=== PATIENT | female | born 1970 | race Caucasian/White ===

== ENCOUNTER 2018-09-29 10:34 | Inpatient (IN) | payer OTHER ==
[2018-09-29 11:32] VITALS: BMI 29.8
[2018-09-29] MEDS ORDERED: LOPERAMIDE HCL 2 MG CAPSULE PO PRN (12:36)
[2018-09-29] MEDS ORDERED: MAGNESIUM HYDROX 2400MG/30ML ORAL SUSPENSION 30 ML CUP PO PRN (12:36)
[2018-09-29] MEDS ORDERED: MENTHOL/PHENOL 1 EACH UD MM PRN (12:36)
[2018-09-29] MEDS ORDERED: ACETAMINOPHEN 325 MG TABLET (FP) PO PRN (12:36)
[2018-09-29] MEDS ORDERED: hydrOXYzine PAMOATE 25 MG CAPSULE (FP) PO PRN (12:36)
[2018-09-29] MEDS ORDERED: P-EPHED 60MG/TRIPROLIDI 2.5MG TABLET PO PRN (12:36)
[2018-09-29] MEDS ORDERED: guaiFENesin 200 MG/10 ML 10 ML UNIT-DOSE CUPS PO PRN (12:36)
[2018-09-29] MEDS ORDERED: IBUPROFEN 400 MG TABLET (FP) PO PRN (12:36)
[2018-09-29] MEDS ORDERED: MAG HYDROX/AL HYDROX/SIMETH 30 ML UNIT-DOSE CUP PO PRN (12:36)
[2018-09-29] MEDS ORDERED: MAGNESIUM CITRATE 300 ML BOTTLE PO PRN (12:36)
--- NOTE | 2018-09-29 13:05 | HP ---
CIWA Score - Admission Criteria OASAS Guidelines: Admission for Medically Managed Detox: Requires at least one of the followin. CIWA greater than 12 2. Seizures within the past 24 hours 3. Delirium tremens within the past 24 hours 4. Hallucinations within the past 24 hours 5. Acute intervention needed for co occurring medical disorder 6. Acute intervention needed for co occurring psychiatric disorder 7. Severe withdrawal that cannot be handled at a lower level of care (continued vomiting, continued diarrhea, abnormal vital signs) requiring intravenous medication and/or fluids 8. Admission ROS [facility] - [facility] Chief Complaint: rehab for heroin, crack cocaine, and marijuana Allergies/Adverse Reactions: Allergies Allergy/AdvReac Type Severity Reaction Status Date / Time No Known Allergies Allergy Verified 09/18/18 14:21 History of Present Illness: Ms. Yen is a 48yo female with heroin use disorder on methadone tx, cocaine use disorder, marijuana use disorder, anxiety, HTN, and fibromyalgia who presents for rehab. She tried to check in on 09/18/18 but left before being admitted. She is currently in methadone tx program on 140mg last given today, but she used 1 bag of heroin yesterday afternoon by inhalation. First use at 26. She has been in methadone tx since November 2017. Pt also reports smoking $200 worth of crack cocaine daily and used $500 worth yesterday. First use at 17. Pt also reports smoking 1-2 bags/daily of marijuana. First use at 13. Pt smokes 1/2 ppd since 12. She rarely drinks ETOH. Pt reports back pain. Pt denies JAMES, dizziness, chills, sweating, CP, SOB. PMH: heroin use disorder on methadone tx, cocaine use disorder, marijuana use disorder, anxiety, HTN, and fibromyalgia surgical hx: fx pelvis, ankle, skull, appy, lung meds: Abilify, Remeron, Klonopin, omeprazole family hx: parents-HTN - Ebola screening Have you traveled outside of the country in the last 21 days: No (NN) Have you had contact with anyone from an Ebola affected area: No Do you have a fever: No - Review of Systems Constitutional: No Symptoms Reported EENT: reports: No Symptoms Reported Respiratory: denies: Shortness of Breath Cardiac: denies: Chest Pain GI: denies: Diarrhea, Nausea, Vomiting : reports: No Symptoms Reported Musculoskeletal: reports: Back Pain Integumentary: reports: No Symptoms Reported Neuro: denies: Headache, Dizziness Endocrine: reports: No Symptoms Reported Hematology: reports: No Symptoms Reported Psychiatric: reports: Judgement Intact, Mood/Affect Appropiate, Orientated x3 Patient History - Patient Medical History Hx Anemia: No Hx Asthma: No Hx Chronic Obstructive Pulmonary Disease (COPD): No Hx Cancer: No Hx Cardiac Disorders: No Hx Congestive Heart Failure: No Hx Hypertension: No Hx Hypercholesterolemia: No Hx Pacemaker: No HX Cerebrovascular Accident: No Hx Seizures: No Hx Dementia: No Hx Diabetes: No Hx Gastrointestinal Disorders: No Hx Liver Disease: No Hx Genitourinary Disorders: No Hx Sexually Transmitted Disorders: No Hx Renal Disease (ESRD): No Hx Thyroid Disease: No Hx Human Immunodeficiency Virus (HIV): No (2018 last negative) Hx Hepatitis C: Yes (treated) Hx Depression: No Hx Suicide Attempt: No Hx Bipolar Disorder: Yes (on med) Hx Schizophrenia: No - Patient Surgical History Past Surgical History: Yes Hx Appendectomy: Yes (at age of 5 years) Hx Orthopedic Surgery: Yes (right ankle at age 38 years) - Reproductive History Last Menstrual Period: 04/22/16 - Smoking Cessation Smoking history: Current every day smoker Have you smoked in the past 12 months: Yes Aproximately how many cigarettes per day: 10 Cigars Per Day: 0 Hx Chewing Tobacco Use: No Initiated information on smoking cessation: Yes 'Breaking Loose' booklet given: 09/29/18 - Substances abused Crack Substance route: Smoking Frequency: Daily Amount used: $600/week Age of first use: 19 Date of last use: 09/29/18 Alcohol Substance route: Oral Frequency: 3-6 times per week Amount used: 3 nips & 3 strawbaritia beer Age of first use: 13 Date of last use: 09/27/18 Marijuana/Hashish Substance route: Smoking Frequency: Daily Amount used: 2 bags Age of first use: 48 Date of last use: 09/28/18 Heroin Substance route: Inhalation Frequency: 1-2 times per week Amount used: 1 bag/day Age of first use: 26 Date of last use: 09/28/18 Family Disease History - Family Disease History Family Disease History: Other: Father (HTN), Mother (HTN) Admission Physical Exam BHS - Vital Signs Vital Signs: Vital Signs - 24 hr 09/29/18 11:23 Temperature 97.6 F Pulse Rate 49 L Respiratory 18 Rate Blood Pressure 126/77 - Physical General Appearance: Yes: No Apparent Distress HEENTM: Yes: Within Normal Limits Respiratory: Yes: Lungs Clear, No Respiratory Distress Neck: Yes: Within Normal Limits Cardiology: Yes: Regular Rhythm, Bradycardia Abdominal: Yes: Normal Bowel Sounds, Non Tender Back: Yes: Within Normal Limits Musculoskeletal: Yes: full range of Motion 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: 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 intact, Fully Oriented, Alert, Motor Strength 5/5, Normal Mood/Affect Integumentary: Yes: Within Normal Limits - Diagnostic (1) Opioid use disorder Current Visit: Yes Status: Chronic (2) Hypertension Current Visit: Yes Status: Chronic Qualifiers: Hypertension type: unspecified Qualified Code(s): I10 - Essential (primary ) hypertension (3) Cannabis dependence Current Visit: No Status: Chronic (4) Cocaine dependence Current Visit: No Status: Chronic (5) Methadone maintenance therapy patient Current Visit: Yes Status: Chronic (6) Nicotine dependence Current Visit: Yes Status: Chronic Cleared for Admission [facility] - Detox or Rehab [facility] Level of Care: Medically Managed Breathalyzer - Breathalyzer Breathalyzer: 0 Urine Drug Screen - Test Device Lot number: [id number] Expiration date: 07/10/20 - Control Is test valid?: Yes - Results Drug screen NEGATIVE: No Urine drug screen results: THC-Marijuana, INDIA-Cocaine, MOP-Opiates, MTD- Methadone Inpatient Rehab Admission - Rehab Decision to Admit Inpatient rehab admission?: Yes - Initial Determination Are CD services needed?: Yes Free of communicable disease: Yes Not in need of hospitalization: Yes - Rehab Admission Criteria Previous failed treatment: Yes Poor recovery environment: Yes Comorbidities: Yes Lacks judgement: No Patient is meeting Inpatient Rehab admission criteria:: Yes
[2018-09-29 14:41] LABS: HEMATOCRIT 37.3 % (32.4-45.2); HEMOGLOBIN 12.8 GM/dL (10.7-15.3); MCH 30.5 pg (25.7-33.7); MCHC 34.4 g/dl (32.0-36.0); MEAN CELL VOLUME 88.7 fl (80-96); MEAN PLT VOLUME 8.4 fl (7.5-11.1); PLATELET COUNT 291 K/MM3 (134-434); RDW 12.1 % (11.6-15.6)
[2018-09-29 14:51] LABS: ALBUMIN 3.4 g/dl (3.4-5.0); BILIRUBIN,TOTAL 0.4 mg/dL (0.2-1); BLOOD UREA NITROGEN 6.5 mg/dL (7-18); CREATININE 0.6 mg/dL (0.55-1.3)
[2018-09-29] MEDS: NICOTINE 14 MG/24 HOURS TOPICAL PATCH TD SCH (16:02)
[2018-09-29] MEDS ORDERED: MELATONIN 5 MG TABLETS PO PRN (22:00)
[2018-09-30] MEDS ORDERED: METHADONE HCL 10 MG TABLET PO SCH ×2 (06:00)
[2018-09-30] MEDS ORDERED: METHADONE HCL 40 MG DISPERSABLE TABLET ONE (06:14)
[2018-09-30] MEDS ORDERED: METHADONE HCL 10 MG TABLET ONE (06:14)
[2018-09-30] MEDS: METHADONE 120 MG, METHADONE 10 MG PO SCH (06:25)
--- NOTE | 2018-09-30 07:50 | PN ---
Teaching Attending Note Name of Resident: Eva Tierney ATTENDING PHYSICIAN STATEMENT I saw and evaluated the patient. I reviewed the resident's note and discussed the case with the resident. I agree with the resident's findings and plan as documented. SUBJECTIVE: Agree with subjective findings by resident OBJECTIVE: Agree with objective findings by resident ASSESSMENT AND PLAN: Agree with admission plans and orders by resident. Dr. Carpenter
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
[2018-09-30] MEDS: NICOTINE 14 MG/24 HOURS TOPICAL PATCH TD SCH (10:37)
[2018-09-30] MEDS: PANTOPRAZOLE 20 MG TABLET (FP) PO SCH (10:37)
[2018-09-30] MEDS: NICOTINE POLACRILEX 2 MG GUM BC PRN ×2 (10:41→19:05)
[2018-09-30] MEDS: ARIPiprazole 10 MG TABLET PO SCH (11:57)
--- NOTE | 2018-09-30 13:41 | EKG ---
Test Reason : Blood Pressure : / mmHG Vent. Rate : 044 BPM Atrial Rate : 044 BPM P-R Int : 168 ms QRS Dur : 090 ms QT Int : 514 ms P-R-T Axes : 071 067 063 degrees QTc Int : 439 ms MARKED SINUS BRADYCARDIA ABNORMAL ECG NO PREVIOUS ECGS AVAILABLE Confirmed by ORLANDO URENA, LATESHA ([id number]) on 09/30/2018 1:40:51 PM Referred By: Confirmed By:LATESHA PERRY MD
[2018-09-30] MEDS ORDERED: cloNIDine HCL 0.1 MG TABLET PO PRN (14:26)
--- NOTE | 2018-09-30 14:37 | PN ---
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 REPORTS SH HAS TAKEN NORVASC IN THE PAST. DENIES HX OF HTN ON ADMISSION. UNABLE TO REMEMBER THE DOSE. PT UNABLE TO GIVE CLEAR MEDICAL INFORMATION. PT IS ALERT O X3. NAD. THIS STRUCTURAL ENGINEERING PROJECT MANAGER CALLED [facility] WHICH IS PT'S HOME PHARMACY IN [facility] [place] AND PHARMACIST REPORTS PT NEVER ON NORVASC WITH THEM. STATES ONLY CLONAZEPAM IN THEIR PHARMACY. Vital Signs - 24 hr 09/30/18 09/30/18 09/30/18 00:30 03:30 07:31 Temperature 98.2 F Pulse Rate 56 L Respiratory 18 18 18 Rate Blood Pressure 181/90 H 09/30/18 08:54 Temperature 97.7 F Pulse Rate 54 L Respiratory 20 Rate Blood Pressure 132/85 A/P ??TRANSIENT ELEVATED BP PT HX OF BP MED-NOT VERIFIABLE CLONIDINE 0.1 MG PO BID PRN
[2018-09-30 17:23] LABS: EPI CELLS >36 /HPF (0-5/HPF); HYALINE CASTS 165 /lpf (0-8); PH,URINE 5.5 (5.0-8.0); URINE APPEARANCE TURBID; URINE BACTERIA 960.1 /hpf (NEGATIVE); URINE BILIRUBIN NEGATIVE (NEGATIVE); URINE COLOR YELLOW; URINE GLUCOSE (UA) NEGATIVE (NEGATIVE); URINE KETONE TRACE (NEGATIVE); URINE LEUK ESTERASE 2+ (NEGATIVE); URINE NITRITE NEGATIVE (NEGATIVE); URINE PROTEIN NEGATIVE (NEGATIVE); URINE RBC 3 /hpf (0-4); URINE WBC 76 /hpf (0-5)
[2018-09-30 18:21] LABS: URINE CRYSTALS CALCIUM OXALATE /hpf
[2018-09-30] MEDS ORDERED: SUVOREXANT 10 MG TABLET PO PRN (22:00)
[2018-10-01] MEDS ORDERED: METHADONE HCL 10 MG TABLET ONE (03:47)
[2018-10-01] MEDS ORDERED: METHADONE HCL 40 MG DISPERSABLE TABLET ONE (03:47)
[2018-10-01] MEDS: METHADONE 120 MG, METHADONE 10 MG PO SCH (06:17)
[2018-10-01 07:35] VITALS: TEMP 98.5
[2018-10-01] MEDS ORDERED: PT OWN MED DRAWER 7, Y5N ONE (09:04)
[2018-10-01] MEDS ORDERED: IBUPROFEN 600 MG TABLET (FP) PO PRN (10:37)
[2018-10-01] MEDS: NICOTINE 14 MG/24 HOURS TOPICAL PATCH TD SCH (10:38)
[2018-10-01] MEDS: PANTOPRAZOLE 20 MG TABLET (FP) PO SCH (10:39)
[2018-10-01] MEDS: ARIPiprazole 10 MG TABLET PO SCH (10:39)
[2018-10-01] MEDS: NICOTINE POLACRILEX 2 MG GUM BC PRN (10:41)
[2018-10-01 11:06] VITALS: BP 123/75; PULSE 60
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
== END 2018-10-01 14:15 | disposition left against medical advice (07) | DRG 770 ==
LOC: YASAS 10:34 → Y3E 12:59
PROVIDERS: ADMIT Neuromusculoskeletal Medicine & OMM; ATTEND Neuromusculoskeletal Medicine & OMM
PROC: HZ42ZZZ Group Counseling for Substance Abuse Treatment, Cognitive-Behavioral (ICD-10-PCS; principal; 2018-09-29)
DX: F10.20 Alcohol dependence, uncomplicated (principal); F11.20 Opioid dependence, uncomplicated; F14.20 Cocaine dependence, uncomplicated; F12.20 Cannabis dependence, uncomplicated; F17.210 Nicotine dependence, cigarettes, uncomplicated; F19.24 Other psychoactive substance dependence with psychoactive substance-induced mood disorder; F31.81 Bipolar II disorder; F43.10 Post-traumatic stress disorder, unspecified; I10 Essential (primary) hypertension; M79.7 Fibromyalgia
CPT/HCPCS: 36415; 80053; 81003; 85027; 86480; 86593; 87389; 93005; 93010

== ENCOUNTER 2018-10-17 12:23 | Inpatient (IN) | payer OTHER ==
[2018-10-17 14:18] VITALS: BMI 29.2
--- NOTE | 2018-10-17 17:52 | HP ---
CIWA Score Nausea/Vomitin Muscle Tremors: 2 Anxiety: 2 Agitation: 2 Paroxysmal Sweats: 2 Orientation: 0-Oriented Tacttile Disturbances: 2-Mild Itch/Numbness/Burn Auditory Disturbances: 1-Very Mild Visual Disturbances: 2-Mild Sensitivity Headache: 1-Very Mild CIWA-Ar Total Score: 16 - Admission Criteria OASAS Guidelines: Admission for Medically Managed Detox: Requires at least one of the followin. CIWA greater than 12 2. Seizures within the past 24 hours 3. Delirium tremens within the past 24 hours 4. Hallucinations within the past 24 hours 5. Acute intervention needed for co occurring medical disorder 6. Acute intervention needed for co occurring psychiatric disorder 7. Severe withdrawal that cannot be handled at a lower level of care (continued vomiting, continued diarrhea, abnormal vital signs) requiring intravenous medication and/or fluids 8. Patient presents the following: CIWA greater than 12 Admission Criteria Met: Admission criteria met Admission ROS S - HPI Chief Complaint: I need help to stop drinking and smoking crack Allergies/Adverse Reactions: Allergies Allergy/AdvReac Type Severity Reaction Status Date / Time No Known Allergies Allergy Verified 10/17/18 13:56 History of Present Illness: 48 year old woman presents for detox from alcohol, she reports blackouts in the past, last episode a year ago. She [facility] She was medicated today, reports her Friday dose was left at home. Exam Limitations: No Limitations - Ebola screening Have you traveled outside of the country in the last 21 days: No (N) Have you had contact with anyone from an Ebola affected area: No Have you been sick,other than usual withdrawal symptoms: No Do you have a fever: No - Review of Systems Constitutional: Chills, Loss of Appetite, Changes in sleep EENT: reports: Blurred Vision Respiratory: reports: Cough Cardiac: reports: No Symptoms Reported GI: reports: Diarrhea, Poor Appetite, Poor Fluid Intake, Abdominal cramping : reports: Other (Dont urinate a lot) Musculoskeletal: reports: Back Pain, Joint Pain, Muscle Pain, Muscle Weakness Integumentary: reports: No Symptoms Reported Neuro: reports: Headache, Numbness, Tingling, Tremors Endocrine: reports: No Symptoms Reported Hematology: reports: No Symptoms Reported Psychiatric: reports: Anxious Other Systems: Reviewed and Negative Patient History - Patient Medical History Hx Anemia: No Hx Asthma: No Hx Chronic Obstructive Pulmonary Disease (COPD): No Hx Cancer: No Hx Cardiac Disorders: No Hx Congestive Heart Failure: No Hx Hypertension: Yes Hx Hypercholesterolemia: No Hx Pacemaker: No HX Cerebrovascular Accident: No Hx Seizures: No Hx Dementia: No Hx Diabetes: No Hx Gastrointestinal Disorders: No Hx Liver Disease: No Hx Genitourinary Disorders: No Hx Sexually Transmitted Disorders: No Hx Renal Disease (ESRD): No Hx Thyroid Disease: No Hx Human Immunodeficiency Virus (HIV): No Hx Hepatitis C: Yes (treated) Hx Depression: No Hx Suicide Attempt: No Hx Bipolar Disorder: Yes Hx Schizophrenia: No - Patient Surgical History Past Surgical History: Yes Hx Appendectomy: Yes (at age of 5 years) Hx Orthopedic Surgery: Yes (right ankle at age 38 years) Anesthesia Reaction: No - PPD History Previous Implant?: No Documented Results: Negative w/o proof Implanted On Prior [facility] Admission?: No PPD to be Administered?: No - Reproductive History Patient is a Female of Child Bearing Age (11 -55 yrs old): Yes Last Menstrual Period: 04/22/16 Patient : No - Smoking Cessation Smoking history: Current every day smoker Have you smoked in the past 12 months: Yes Aproximately how many cigarettes per day: 10 Cigars Per Day: 0 Hx Chewing Tobacco Use: No Initiated information on smoking cessation: Yes 'Breaking Loose' booklet given: 10/17/18 - Substances abused Crack Substance route: Smoking Frequency: Daily Amount used: $250/day Age of first use: 19 Date of last use: 10/17/18 Alcohol Substance route: Oral Frequency: Daily Amount used: 2-3 16oz cans beer Age of first use: 12 Date of last use: 10/15/18 Marijuana/Hashish Substance route: Smoking Frequency: Daily Amount used: 1joint Age of first use: 48 Date of last use: 10/17/18 Heroin Substance route: Inhalation Frequency: Daily Amount used: 3 bags/day Age of first use: 26 Date of last use: 10/17/18 Family Disease History - Family Disease History Family Disease History: Other: Father (HTN), Mother (HTN) Admission Physical Exam BHS - Vital Signs Vital Signs: Vital Signs - 24 hr 10/17/18 13:49 Temperature 97.9 F Pulse Rate 59 L Respiratory 16 Rate Blood Pressure 138/84 - Physical General Appearance: Yes: No Apparent Distress HEENTM: Yes: Hearing grossly Normal, Normocephalic, Normal Voice Respiratory: Yes: Chest Non-Tender, Lungs Clear, Normal Breath Sounds Neck: Yes: No masses,lesions,Nodules, Supple Breast: Yes: Breast Exam Deferred Cardiology: Yes: Regular Rhythm, Regular Rate, S1, S2 Abdominal: Yes: Normal Bowel Sounds, Non Tender, Soft Genitourinary: Yes: Within Normal Limits Back: Yes: Normal Inspection Musculoskeletal: Yes: Gait Steady, Pelvis Stable, Back pain, Muscle weakness Extremities: Yes: Tremors 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: 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, Fully Oriented, Alert, Normal Mood/ Affect, Normal Response Integumentary: Yes: Normal Color, Warm Lymphatic: Yes: Within Normal Limits - Diagnostic (1) Alcohol dependence, uncomplicated Current Visit: Yes Status: Acute (2) Hypertension Current Visit: No Status: Chronic Qualifiers: Hypertension type: essential hypertension Qualified Code(s): I10 - Essential (primary) hypertension (3) Methadone maintenance therapy patient Current Visit: Yes Status: Chronic (4) Nicotine dependence Current Visit: Yes Status: Acute Qualifiers: Nicotine product type: cigarettes Substance use status: uncomplicated Qualified Code(s): F17.210 - Nicotine dependence, cigarettes, uncomplicated (5) Opioid dependence on agonist therapy Current Visit: Yes Status: Chronic Cleared for Admission S - Detox or Rehab [facility] Level of Care: Medically Managed Detox Regimen/Protocol: Librium Claeared for Rehab Admission: No Breathalyzer - Breathalyzer Breathalyzer: 0 Urine Drug Screen - Test Device Lot number: [id number] Expiration date: 04/09/20 - Control Is test valid?: Yes - Results Drug screen NEGATIVE: No Urine drug screen results: THC-Marijuana, INDIA-Cocaine, MTD-Methadone Inpatient Rehab Admission - Rehab Decision to Admit Inpatient rehab admission?: No
[2018-10-17] MEDS ORDERED: IBUPROFEN 400 MG TABLET (FP) PO PRN (18:02)
[2018-10-17] MEDS ORDERED: BISMUTH SUBSALICYLATE 524 MG/30 ML UD PO PRN (18:02)
[2018-10-17] MEDS ORDERED: MAGNESIUM HYDROX 2400MG/30ML ORAL SUSPENSION 30 ML CUP PO PRN (18:02)
[2018-10-17] MEDS ORDERED: ACETAMINOPHEN 325 MG TABLET (FP) PO PRN ×2 (18:02)
[2018-10-17] MEDS ORDERED: chlordiazePOXIDE HCL 10 MG CAPSULE PO PRN (18:02)
[2018-10-17] MEDS ORDERED: MELATONIN 5 MG TABLETS PO PRN (18:02)
[2018-10-17] MEDS ORDERED: hydrOXYzine PAMOATE 25 MG CAPSULE (FP) PO PRN (18:02)
[2018-10-17] MEDS ORDERED: MAGNESIUM CITRATE 300 ML BOTTLE PO PRN (18:02)
[2018-10-17] MEDS ORDERED: NICOTINE POLACRILEX 2 MG GUM BUC PRN (18:02)
[2018-10-17] MEDS ORDERED: MENTHOL/PHENOL 1 EACH UD MM PRN (18:02)
[2018-10-17] MEDS ORDERED: predniSONE 20 MG TABLET (UD) PO SCH (19:00)
[2018-10-17] MEDS: NICOTINE 7 MG/24 HOURS TOPICAL PATCH TD SCH (19:21)
[2018-10-17] MEDS: THIAMINE HCL 100 MG TABLET (FP) PO SCH (22:37)
[2018-10-17] MEDS: chlordiazePOXIDE HCL 25 MG CAPSULE PO SCH (22:37)
[2018-10-18] MEDS: chlordiazePOXIDE HCL 25 MG CAPSULE PO SCH ×3 (05:42→22:48)
[2018-10-18] MEDS ORDERED: ONDANSETRON *ODT* 4 MG TABLET SL ONE (09:24)
[2018-10-18] MEDS ORDERED: METHADONE HCL 10 MG TABLET PO ONE (09:25)
--- NOTE | 2018-10-18 09:29 | PN ---
S CIWA - CIWA Score Nausea/Vomitin Muscle Tremors: 3 Anxiety: 2 Agitation: 1-Slight > Activity Paroxysmal Sweats: 2 Orientation: 0-Oriented Tacttile Disturbances: 0-None Auditory Disturbances: 0-None Visual Disturbances: 1-Very Mild Sensitivity Headache: 2-Mild CIWA-Ar Total Score: 13 BHS COWS - Scale Resting Pulse: 0= SC 80 or Below Sweatin= Chills/Flushing Restless Observation: 0= Sits Still Pupil Size: 0= Normal to Room Light Bone or Joint Aches: 2= Severe Diffuse Aches Runny Nose/ Eye Tearin= None GI Upset > 30mins: 3= Vomiting/Diarrhea (no diarrhea) Tremor Observation of Outstretched Hands: 2= Slight Tremor Visible Yawning Observation: 2= >3x During Session Anxiety or Irritability: 1=Feels Anxious/Irritable Goose Flesh Skin: 3=Piloerection COWS Score: 14 S Progress Note (SOAP) Subjective: 48 years old female 3rd patient [facility] admission since 2019 was admitted on 10/17/18 for alcohol withdrawal sx management doing well with librium detox regimen however patient is in the methadone program 140 mg po daily unable to be verified the dosage vomiting x 1 cows 14 give methadone 20 mg po one dose now zofran 8mg sl x 1 now Objective: 10/18/18 09:38 Vital Signs Temperature 97.2 F L 10/18/18 06:42 Pulse Rate 61 10/18/18 06:42 Respiratory Rate 16 10/18/18 06:42 Blood Pressure 156/96 10/18/18 06:42 O2 Sat by Pulse Oximetry (%) 10/18/18 09:38 lab pending Assessment: 10/18/18 09:39 alcohol withdrawal sx alert oriented x 2 disoriented to week of the date 10/18/18 09:41 Cardiac S1S2 regular rate rhythm respiratory clear bilaterally on auscultation abdomen soft no rebound tenderness ambulating from room to bathroom steady gait Plan: continue libirum detox regimen
[2018-10-18] MEDS: NICOTINE 7 MG/24 HOURS TOPICAL PATCH TD SCH (10:17)
[2018-10-18] MEDS: PRENATAL VITAMINS W/ FOLIC ACID TABLET (FP) PO SCH (10:18)
[2018-10-18 10:25] LABS: HEMATOCRIT 39.2 % (32.4-45.2); HEMOGLOBIN 13.3 GM/dL (10.7-15.3); MCH 30.6 pg (25.7-33.7); MCHC 34.1 g/dl (32.0-36.0); MEAN CELL VOLUME 89.8 fl (80-96); MEAN PLT VOLUME 8.3 fl (7.5-11.1); PLATELET COUNT 229 K/MM3 (134-434); RBC 4.36 M/mm3 (3.60-5.2); RDW 12.5 % (11.6-15.6); WHITE BLOOD COUNT 7.1 K/mm3 (4.0-10.0)
[2018-10-18 10:26] LABS: ALBUMIN 3.3 g/dl (3.4-5.0); BILIRUBIN,TOTAL 0.3 mg/dL (0.2-1); BLOOD UREA NITROGEN 9.7 mg/dL (7-18); CALCIUM 8.7 mg/dL (8.5-10.1); CREATININE 0.7 mg/dL (0.55-1.3); POTASSIUM 3.8 mmol/L (3.5-5.1); TOT PROT 6.3 g/dl (6.4-8.2)
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
[2018-10-18] MEDS: ARIPiprazole 10 MG TABLET PO SCH (13:29)
[2018-10-18] MEDS: ESCITALOPRAM OXALATE 10 MG TABLET (FP) PO SCH (13:29)
[2018-10-18] MEDS: THIAMINE HCL 100 MG TABLET (FP) PO SCH (22:48)
[2018-10-18] MEDS: NORTRIPTYLINE HCL 25 MG CAPSULE PO SCH (23:24)
[2018-10-19] MEDS: chlordiazePOXIDE 5 MG CAPSULE PO SCH ×3 (06:23→22:18)
[2018-10-19] MEDS ORDERED: METHADONE HCL 10 MG TABLET PO ONE (08:54)
--- NOTE | 2018-10-19 09:00 | PN ---
S CIWA - CIWA Score Nausea/Vomitin-Mild Nausea/No Vomiting Muscle Tremors: 2 Anxiety: 3 Agitation: 1-Slight > Activity Paroxysmal Sweats: 2 Orientation: 0-Oriented Tacttile Disturbances: 0-None Auditory Disturbances: 0-None Visual Disturbances: 0-None Headache: 0-None Present CIWA-Ar Total Score: 9 B[facility] Progress Note (SOAP) Subjective: methadone verified that last dose of 140 mg on 10/17/18 patient agrees to take 120 mg today and 130 mg 10/20/18 and 140 mg 10/21/09 based on patient's tolerance that dosage can be re adjusted and may return to methadone program for re assessment patient is doing well with librium detox regimen less tremor sleep better at might Objective: 10/19/18 12:16 Vital Signs Temperature 98.5 F 10/19/18 09:20 Pulse Rate 64 10/19/18 09:20 Respiratory Rate 18 10/19/18 09:20 Blood Pressure 132/77 10/19/18 09:20 O2 Sat by Pulse Oximetry (%) Laboratory Last Values WBC 7.1 K/mm3 (4.0-10.0) 10/18/18 08:00 RBC 4.36 M/mm3 (3.60-5.2) 10/18/18 08:00 Hgb 13.3 GM/dL (10.7-15.3) 10/18/18 08:00 Hct 39.2 % (32.4-45.2) 10/18/18 08:00 MCV 89.8 fl (80-96) 10/18/18 08:00 MCH 30.6 pg (25.7-33.7) 10/18/18 08:00 MCHC 34.1 g/dl (32.0-36.0) 10/18/18 08:00 RDW 12.5 % (11.6-15.6) 10/18/18 08:00 Plt Count 229 K/MM3 (134-434) D 10/18/18 08:00 MPV 8.3 fl (7.5-11.1) 10/18/18 08:00 Sodium 144 mmol/L (136-145) 10/18/18 08:00 Potassium 3.8 mmol/L (3.5-5.1) 10/18/18 08:00 Chloride 106 mmol/L (98-107) 10/18/18 08:00 Carbon Dioxide 29 mmol/L (21-32) 10/18/18 08:00 Anion Gap 9 MMOL/L (8-16) 10/18/18 08:00 BUN 9.7 mg/dL (7-18) 10/18/18 08:00 Creatinine 0.7 mg/dL (0.55-1.3) 10/18/18 08:00 Est GFR (CKD-EPI)AfAm 117.09 10/18/18 08:00 Est GFR (CKD-EPI)NonAf 101.02 10/18/18 08:00 Random Glucose 82 mg/dL (74-106) 10/18/18 08:00 Calcium 8.7 mg/dL (8.5-10.1) 10/18/18 08:00 Total Bilirubin 0.3 mg/dL (0.2-1) 10/18/18 08:00 AST 14 U/L (15-37) L 10/18/18 08:00 ALT 14 U/L (13-61) 10/18/18 08:00 Alkaline Phosphatase 70 U/L (45-117) 10/18/18 08:00 Total Protein 6.3 g/dl (6.4-8.2) L 10/18/18 08:00 Albumin 3.3 g/dl (3.4-5.0) L 10/18/18 08:00 POC Urine HCG, Qual Negative 10/17/18 16:45 RPR Titer Nonreactive (NONREACTIVE) 10/18/18 08:00 lab noted bp gradually lower to acceptable range by knowing well receive methadone 140 mg 10/19/18 12:18 Assessment: 10/19/18 12:19 alcohol withdrawal sx Plan: continue librium detox regimen
[2018-10-19] MEDS: NICOTINE 7 MG/24 HOURS TOPICAL PATCH TD SCH (09:56)
[2018-10-19] MEDS: PRENATAL VITAMINS W/ FOLIC ACID TABLET (FP) PO SCH (09:59)
[2018-10-19] MEDS: ESCITALOPRAM OXALATE 10 MG TABLET (FP) PO SCH (09:59)
[2018-10-19] MEDS: ARIPiprazole 10 MG TABLET PO SCH (09:59)
[2018-10-19] MEDS ORDERED: METHADONE HCL 40 MG DISPERSABLE TABLET PO ONE (10:00)
[2018-10-19] MEDS: METHOCARBAMOL 500 MG TABLET PO PRN (14:00)
[2018-10-19] MEDS: MAG HYDROX/AL HYDROX/SIMETH 30 ML UNIT-DOSE CUP PO PRN (19:39)
[2018-10-19] MEDS: THIAMINE HCL 100 MG TABLET (FP) PO SCH (22:18)
[2018-10-19] MEDS: NORTRIPTYLINE HCL 25 MG CAPSULE PO SCH (22:18)
[2018-10-20] MEDS ORDERED: chlordiazePOXIDE HCL 10 MG CAPSULE PO PRN
[2018-10-20] MEDS ORDERED: METHADONE HCL 10 MG TABLET ONE (04:11)
[2018-10-20] MEDS ORDERED: METHADONE HCL 40 MG DISPERSABLE TABLET ONE (04:12)
[2018-10-20] MEDS ORDERED: METHADONE 120 MG, METHADONE 10 MG PO ONE (06:00)
[2018-10-20] MEDS ORDERED: METHADONE HCL 10 MG TABLET PO ONE (06:00)
[2018-10-20] MEDS: chlordiazePOXIDE HCL 10 MG CAPSULE PO SCH ×3 (06:26→21:26)
[2018-10-20] MEDS: ARIPiprazole 10 MG TABLET PO SCH (10:43)
[2018-10-20] MEDS: ESCITALOPRAM OXALATE 10 MG TABLET (FP) PO SCH (10:43)
[2018-10-20] MEDS: NICOTINE 7 MG/24 HOURS TOPICAL PATCH TD SCH (10:43)
[2018-10-20] MEDS: PRENATAL VITAMINS W/ FOLIC ACID TABLET (FP) PO SCH (10:43)
--- NOTE | 2018-10-20 12:52 | PN ---
[facility] CIWA - CIWA Score Nausea/Vomitin-No Nausea/No Vomiting Muscle Tremors: 2 Anxiety: 2 Agitation: 2 Paroxysmal Sweats: No Perspiration Orientation: 0-Oriented Tacttile Disturbances: 0-None Auditory Disturbances: 0-None Visual Disturbances: 0-None Headache: 0-None Present CIWA-Ar Total Score: 6 BHS Progress Note (SOAP) Subjective: doing well with librium detox regimen received methadone 130 mg po today feeling better discuss aftercare with staff [facility] Objective: 10/20/18 12:56 Vital Signs Temperature 98.9 F 10/20/18 09:14 Pulse Rate 83 10/20/18 09:14 Respiratory Rate 18 10/20/18 09:14 Blood Pressure 109/85 10/20/18 09:14 O2 Sat by Pulse Oximetry (%) Laboratory Last Values WBC 7.1 K/mm3 (4.0-10.0) 10/18/18 08:00 RBC 4.36 M/mm3 (3.60-5.2) 10/18/18 08:00 Hgb 13.3 GM/dL (10.7-15.3) 10/18/18 08:00 Hct 39.2 % (32.4-45.2) 10/18/18 08:00 MCV 89.8 fl (80-96) 10/18/18 08:00 MCH 30.6 pg (25.7-33.7) 10/18/18 08:00 MCHC 34.1 g/dl (32.0-36.0) 10/18/18 08:00 RDW 12.5 % (11.6-15.6) 10/18/18 08:00 Plt Count 229 K/MM3 (134-434) D 10/18/18 08:00 MPV 8.3 fl (7.5-11.1) 10/18/18 08:00 Sodium 144 mmol/L (136-145) 10/18/18 08:00 Potassium 3.8 mmol/L (3.5-5.1) 10/18/18 08:00 Chloride 106 mmol/L (98-107) 10/18/18 08:00 Carbon Dioxide 29 mmol/L (21-32) 10/18/18 08:00 Anion Gap 9 MMOL/L (8-16) 10/18/18 08:00 BUN 9.7 mg/dL (7-18) 10/18/18 08:00 Creatinine 0.7 mg/dL (0.55-1.3) 10/18/18 08:00 Est GFR (CKD-EPI)AfAm 117.09 10/18/18 08:00 Est GFR (CKD-EPI)NonAf 101.02 10/18/18 08:00 Random Glucose 82 mg/dL (74-106) 10/18/18 08:00 Calcium 8.7 mg/dL (8.5-10.1) 10/18/18 08:00 Total Bilirubin 0.3 mg/dL (0.2-1) 10/18/18 08:00 AST 14 U/L (15-37) L 10/18/18 08:00 ALT 14 U/L (13-61) 10/18/18 08:00 Alkaline Phosphatase 70 U/L (45-117) 10/18/18 08:00 Total Protein 6.3 g/dl (6.4-8.2) L 10/18/18 08:00 Albumin 3.3 g/dl (3.4-5.0) L 10/18/18 08:00 POC Urine HCG, Qual Negative 10/17/18 16:45 RPR Titer Nonreactive (NONREACTIVE) 10/18/18 08:00 lab noted Assessment: 10/20/18 12:56 alcohol withdrawal sx Plan: continue librium detox regimen
[2018-10-20] MEDS: MAG HYDROX/AL HYDROX/SIMETH 30 ML UNIT-DOSE CUP PO PRN ×2 (15:06→22:30)
[2018-10-20] MEDS: NORTRIPTYLINE HCL 25 MG CAPSULE PO SCH (22:26)
[2018-10-20] MEDS: THIAMINE HCL 100 MG TABLET (FP) PO SCH (22:26)
[2018-10-20] MEDS: METHOCARBAMOL 500 MG TABLET PO PRN (22:30)
[2018-10-21] MEDS ORDERED: METHADONE HCL 40 MG DISPERSABLE TABLET ONE (04:53)
[2018-10-21] MEDS ORDERED: METHADONE HCL 10 MG TABLET ONE (04:53)
[2018-10-21] MEDS ORDERED: chlordiazePOXIDE HCL 10 MG CAPSULE PO ONE (05:00)
[2018-10-21] MEDS ORDERED: METHADONE 120 MG, METHADONE 20 MG PO ONE (06:00)
[2018-10-21] MEDS ORDERED: METHADONE HCL 10 MG TABLET PO ONE (06:00)
[2018-10-21 09:29] VITALS: BP 110/73; PULSE 75; TEMP 97.5
[2018-10-21] MEDS: PRENATAL VITAMINS W/ FOLIC ACID TABLET (FP) PO SCH (11:37)
[2018-10-21] MEDS: NICOTINE 7 MG/24 HOURS TOPICAL PATCH TD SCH (11:37)
[2018-10-21] MEDS: ESCITALOPRAM OXALATE 10 MG TABLET (FP) PO SCH (11:37)
[2018-10-21] MEDS: ARIPiprazole 10 MG TABLET PO SCH (11:37)
--- NOTE | 2018-10-21 12:28 | DS ---
[facility] Detox Discharge Summary Admission Date: 10/17/18 Discharge Date: 10/21/18 - History Present History: Alcohol Dependence Additional Comments: 48 years old female admitted on 10/17/18 for alcohol withdrawal sx management did well with librium detox regimen no complication through out the detox stay patient is alert oriented x 3 speech clearly coherently cardiac S1S2 regular rate rhythm respiratory clear lung bilaterally on auscultation abdomen soft no rebound tenderness - Physical Exam Results Vital Signs: Vital Signs Temperature 97.5 F L 10/21/18 09:28 Pulse Rate 75 10/21/18 09:28 Respiratory Rate 18 10/21/18 09:28 Blood Pressure 110/73 10/21/18 09:28 O2 Sat by Pulse Oximetry (%) Pertinent Admission Physical Exam Findings: alcohol withdrawal sx Laboratory Last Values WBC 7.1 K/mm3 (4.0-10.0) 10/18/18 08:00 RBC 4.36 M/mm3 (3.60-5.2) 10/18/18 08:00 Hgb 13.3 GM/dL (10.7-15.3) 10/18/18 08:00 Hct 39.2 % (32.4-45.2) 10/18/18 08:00 MCV 89.8 fl (80-96) 10/18/18 08:00 MCH 30.6 pg (25.7-33.7) 10/18/18 08:00 MCHC 34.1 g/dl (32.0-36.0) 10/18/18 08:00 RDW 12.5 % (11.6-15.6) 10/18/18 08:00 Plt Count 229 K/MM3 (134-434) D 10/18/18 08:00 MPV 8.3 fl (7.5-11.1) 10/18/18 08:00 Sodium 144 mmol/L (136-145) 10/18/18 08:00 Potassium 3.8 mmol/L (3.5-5.1) 10/18/18 08:00 Chloride 106 mmol/L (98-107) 10/18/18 08:00 Carbon Dioxide 29 mmol/L (21-32) 10/18/18 08:00 Anion Gap 9 MMOL/L (8-16) 10/18/18 08:00 BUN 9.7 mg/dL (7-18) 10/18/18 08:00 Creatinine 0.7 mg/dL (0.55-1.3) 10/18/18 08:00 Est GFR (CKD-EPI)AfAm 117.09 10/18/18 08:00 Est GFR (CKD-EPI)NonAf 101.02 10/18/18 08:00 Random Glucose 82 mg/dL (74-106) 10/18/18 08:00 Calcium 8.7 mg/dL (8.5-10.1) 10/18/18 08:00 Total Bilirubin 0.3 mg/dL (0.2-1) 10/18/18 08:00 AST 14 U/L (15-37) L 10/18/18 08:00 ALT 14 U/L (13-61) 10/18/18 08:00 Alkaline Phosphatase 70 U/L (45-117) 10/18/18 08:00 Total Protein 6.3 g/dl (6.4-8.2) L 10/18/18 08:00 Albumin 3.3 g/dl (3.4-5.0) L 10/18/18 08:00 POC Urine HCG, Qual Negative 10/17/18 16:45 RPR Titer Nonreactive (NONREACTIVE) 10/18/18 08:00 lab noted - Treatment Hospital Course: Detox Protocol Followed, Detoxed Safely, Responded well, Discharged Condition Good, Rehab Referral Accepted Patient has Accepted a Re[facility] Referral to: [facility] - Medication Discharge Medications: Ambulatory Orders Aripiprazole [Abilify -] 10 mg PO DAILY 09/18/18 Escitalopram Oxalate [Lexapro -] 10 mg PO DAILY 09/18/18 Mirtazapine [Remeron -] 15 mg PO HS 09/18/18 Omeprazole 10 mg PO DAILY 09/18/18 clonazePAM [Klonopin -] 1 mg PO DAILY 09/18/18 - Diagnosis (1) Alcohol dependence, uncomplicated Current Visit: Yes Status: Acute (2) Methadone maintenance therapy patient Current Visit: Yes Status: Chronic (3) Nicotine dependence Current Visit: Yes Status: Acute Qualifiers: Nicotine product type: cigarettes Substance use status: in withdrawal Qualified Code(s): F17.213 - Nicotine dependence, cigarettes, with withdrawal (4) Hepatitis C Current Visit: Yes Status: Resolved Qualifiers: Viral hepatitis chronicity: unspecified Hepatic coma status: without hepatic coma Qualified Code(s): B19.20 - Unspecified viral hepatitis C without hepatic coma (5) Substance induced mood disorder Current Visit: Yes Status: Suspected - AMA Did Patient Leave Against Medical Advice: No CIWA Score - CIWA Score Nausea/Vomitin-No Nausea/No Vomiting Muscle Tremors: 1-None Visible, but [place] Anxiety: 1-Mildly Anxious Agitation: 1-Slight > Activity Paroxysmal Sweats: No Perspiration Orientation: 0-Oriented Tacttile Disturbances: 0-None Auditory Disturbances: 0-None Visual Disturbances: 0-None Headache: 0-None Present CIWA-Ar Total Score: 3
== END 2018-10-21 12:30 | disposition other institution (70) | DRG 773 ==
LOC: YASAS 12:23 → Y3N 18:25
PROVIDERS: ADMIT Surgery; ATTEND Surgery
PROC: HZ2ZZZZ Detoxification Services for Substance Abuse Treatment (ICD-10-PCS; principal; 2018-10-17)
DX: F10.230 Alcohol dependence with withdrawal, uncomplicated (principal); F11.20 Opioid dependence, uncomplicated; F14.20 Cocaine dependence, uncomplicated; F12.20 Cannabis dependence, uncomplicated; F17.213 Nicotine dependence, cigarettes, with withdrawal; F19.24 Other psychoactive substance dependence with psychoactive substance-induced mood disorder; F19.282 Other psychoactive substance dependence with psychoactive substance-induced sleep disorder; F31.81 Bipolar II disorder; F43.10 Post-traumatic stress disorder, unspecified; I10 Essential (primary) hypertension; B19.20 Unspecified viral hepatitis C without hepatic coma; M79.7 Fibromyalgia
CPT/HCPCS: 36415; 80053; 81025; 85027; 86593; Q0162

== ENCOUNTER 2018-10-21 12:39 | Inpatient (IN) | payer OTHER ==
[2018-10-21] MEDS ORDERED: LOPERAMIDE HCL 2 MG CAPSULE PO PRN (12:53)
[2018-10-21] MEDS ORDERED: P-EPHED 60MG/TRIPROLIDI 2.5MG TABLET PO PRN (12:53)
[2018-10-21] MEDS ORDERED: ACETAMINOPHEN 325 MG TABLET (FP) PO PRN (12:53)
[2018-10-21] MEDS ORDERED: IBUPROFEN 400 MG TABLET (FP) PO PRN (12:53)
[2018-10-21] MEDS ORDERED: MENTHOL/PHENOL 1 EACH UD MM PRN (12:53)
[2018-10-21] MEDS ORDERED: guaiFENesin 200 MG/10 ML 10 ML UNIT-DOSE CUPS PO PRN (12:53)
[2018-10-21] MEDS ORDERED: MAGNESIUM CITRATE 300 ML BOTTLE PO PRN (12:53)
--- NOTE | 2018-10-21 12:53 | HP ---
[facility] Rehab Assess/Revision - Admission History Admitted to Rehab from: [facility] Date of Admission to Rehab: 10/21/18 - Findings Detox History & Physical reviewed: Yes Concur with findings: Yes Comments/Additional Findings: transferred from detox to rehab admission as per protocol Inpatient Rehab Admission - Rehab Decision to Admit Inpatient rehab admission?: Yes - Initial Determination Are CD services needed?: Yes Free of communicable disease: Yes Not in need of hospitalization: Yes - Rehab Admission Criteria Previous failed treatment: Yes Poor recovery environment: Yes Comorbidities: Yes Lacks judgement: Yes Patient is meeting Inpatient Rehab admission criteria:: Yes
[2018-10-21] MEDS: MAG HYDROX/AL HYDROX/SIMETH 30 ML UNIT-DOSE CUP PO PRN (17:41)
[2018-10-21] MEDS: NICOTINE POLACRILEX 2 MG GUM BUC PRN (17:41)
[2018-10-21] MEDS: hydrOXYzine PAMOATE 50 MG CAPSULE (FP) PO PRN (17:41)
[2018-10-21] MEDS: THIAMINE HCL 100 MG TABLET (FP) PO SCH (21:58)
[2018-10-21] MEDS: NORTRIPTYLINE HCL 25 MG CAPSULE PO SCH (21:59)
[2018-10-21] MEDS ORDERED: MELATONIN 5 MG TABLETS PO PRN (22:00)
[2018-10-22] MEDS ORDERED: METHADONE HCL 40 MG DISPERSABLE TABLET PO ONE (06:00)
[2018-10-22] MEDS ORDERED: METHADONE HCL 40 MG DISPERSABLE TABLET PO SCH (06:00)
[2018-10-22] MEDS ORDERED: METHADONE 120 MG, METHADONE 10 MG PO ONE (06:00)
[2018-10-22] MEDS ORDERED: METHADONE HCL 10 MG TABLET ONE (06:04)
[2018-10-22] MEDS ORDERED: METHADONE HCL 40 MG DISPERSABLE TABLET ONE (06:04)
[2018-10-22] MEDS ORDERED: NICOTINE 7 MG/24 HOURS TOPICAL PATCH TD SCH (10:00)
[2018-10-22] MEDS: PRENATAL VITAMINS W/ FOLIC ACID TABLET (FP) PO SCH (10:51)
[2018-10-22] MEDS: ESCITALOPRAM OXALATE 10 MG TABLET (FP) PO SCH (10:51)
[2018-10-22] MEDS: ARIPiprazole 10 MG TABLET PO SCH (10:51)
[2018-10-22] MEDS: NICOTINE POLACRILEX 2 MG GUM BUC PRN (10:54)
[2018-10-22] MEDS: MAG HYDROX/AL HYDROX/SIMETH 30 ML UNIT-DOSE CUP PO PRN (17:20)
[2018-10-22] MEDS ORDERED: PT OWN MED DRAWER 7, Y5N ONE (19:43)
[2018-10-22] MEDS: THIAMINE HCL 100 MG TABLET (FP) PO SCH (21:42)
[2018-10-22] MEDS: NORTRIPTYLINE HCL 25 MG CAPSULE PO SCH (22:55)
[2018-10-23] MEDS ORDERED: METHADONE HCL 40 MG DISPERSABLE TABLET PO SCH (06:00)
[2018-10-23] MEDS ORDERED: METHADONE 120 MG, METHADONE 20 MG PO SCH (06:00)
[2018-10-23] MEDS ORDERED: METHADONE HCL 10 MG TABLET ONE (06:12)
[2018-10-23] MEDS ORDERED: METHADONE HCL 40 MG DISPERSABLE TABLET ONE (06:12)
[2018-10-23] MEDS: ESCITALOPRAM OXALATE 10 MG TABLET (FP) PO SCH (10:24)
[2018-10-23] MEDS: PRENATAL VITAMINS W/ FOLIC ACID TABLET (FP) PO SCH (10:24)
[2018-10-23] MEDS: NICOTINE 14 MG/24 HOURS TOPICAL PATCH TD SCH (10:24)
[2018-10-23] MEDS: MAG HYDROX/AL HYDROX/SIMETH 30 ML UNIT-DOSE CUP PO PRN (10:26)
[2018-10-23] MEDS: ARIPiprazole 10 MG TABLET PO SCH (10:28)
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
--- NOTE | 2018-10-23 13:09 | PN ---
[facility] Progress Note Note: Pt is a 48 y/o female admitted to rehab from [address] [place] [address] on 10/21/18. Pt is on methadone 140 mg po daily but exhibiting drowsiness in rehab. Pt received methadone 130 mg po on 10/22/18 and 140 mg this morning. Pt reports both doses making her drowsy and wants either 90 mg or 100 mg po daily. Pt states she was supplementing with crack on the streets and was never drowsy as she is now experiencing and wants to be adjusted. This sports book writer called [facility] to discuss dose adjustment but voice mail response of "phone number not in service" received. Saw pt in bed but she got out of bed with no difficulty and appeared a little tired. Vital Signs 10/23/18 07:23 Temperature 97.6 F Pulse Rate 73 Respiratory 18 Rate Blood Pressure 151/92 alert o x 3 oob with steady gait A/P Pt on [facility]MTP Drowsiness Plan:Discussed with Dr. Carpenter, Manager Maintenance re:pt's decreased dose request. Also discussed with patient who is agreeble to receiving methadone 100 mg po daily x 3 days through the weekend and re-evaluate status on Friday. Reminded Nursing staff to evaluate patient before administration of methadone and call MD/CONE TREATER if needed for re-evaluation of dose or hold dose.
[2018-10-23] MEDS: MAGNESIUM HYDROX 2400MG/30ML ORAL SUSPENSION 30 ML CUP PO PRN ×2 (15:28→22:10)
[2018-10-23] MEDS ORDERED: PT OWN MED DRAWER 7, Y5N ONE (19:59)
[2018-10-23] MEDS: THIAMINE HCL 100 MG TABLET (FP) PO SCH (21:27)
[2018-10-23] MEDS: NORTRIPTYLINE HCL 25 MG CAPSULE PO SCH (21:27)
[2018-10-23] MEDS: hydrOXYzine PAMOATE 50 MG CAPSULE (FP) PO PRN (21:30)
[2018-10-24] MEDS ORDERED: METHADONE 120 MG, METHADONE 20 MG PO SCH (06:00)
[2018-10-24] MEDS ORDERED: METHADONE HCL 10 MG TABLET PO SCH (06:00)
[2018-10-24] MEDS ORDERED: METHADONE 80 MG, METHADONE 20 MG PO SCH (06:00)
[2018-10-24] MEDS ORDERED: METHADONE HCL 40 MG DISPERSABLE TABLET ONE (06:28)
[2018-10-24] MEDS ORDERED: METHADONE HCL 10 MG TABLET ONE (06:28)
[2018-10-24 07:13] VITALS: BP 135/85; PULSE 75; TEMP 98.2
[2018-10-24] MEDS: ESCITALOPRAM OXALATE 10 MG TABLET (FP) PO SCH (10:23)
[2018-10-24] MEDS: MAG HYDROX/AL HYDROX/SIMETH 30 ML UNIT-DOSE CUP PO PRN (10:23)
[2018-10-24] MEDS: PRENATAL VITAMINS W/ FOLIC ACID TABLET (FP) PO SCH (10:24)
[2018-10-24] MEDS: ARIPiprazole 10 MG TABLET PO SCH (10:24)
[2018-10-24] MEDS: NICOTINE 14 MG/24 HOURS TOPICAL PATCH TD SCH (10:24)
--- NOTE | 2018-10-24 17:14 | PN ---
[facility] Progress Note Note: patient could not continue rehab due to personal problem,issue with housing, high risk of relapsing explained,patient under stood, on taper of methadone dose,and being monitor,patient understood,mentioned will follow up with her methadone program n Friday10/26/18,mention has bottle of methadone at home for tomorrow,left the unit in good and stable condition
--- NOTE | 2018-10-24 17:21 | DS ---
[facility] Rehab Discharge Summary - [facility] Rehab Discharge Summary Admission Date: 10/21/18 Discharge Date: 10/24/18 - History Present History: Alcohol dependence, Cannabis dependence, [facility] Additional Comments: patient left [facility] for personal issue for housing problem,follow up with methadone maintenance, let the unit in good and stable condition Pertinent Past History: hypertension bipolar disorder ptsd - Discharge Physical Exam Vital Signs: Vital Signs Temperature 98.2 F 10/24/18 07:12 Pulse Rate 75 10/24/18 07:12 Respiratory Rate 18 10/24/18 07:12 Blood Pressure 135/85 10/24/18 07:12 O2 Sat by Pulse Oximetry (%) Pertinent Admission Physical Exam Findings: patient was admitted on 10/21/18 after detox for continuing [facility] - Medication Discharge Medications: Ambulatory Orders Aripiprazole [Abilify -] 10 mg PO DAILY 09/18/18 Escitalopram Oxalate [Lexapro -] 10 mg PO DAILY 09/18/18 Mirtazapine [Remeron -] 15 mg PO HS 09/18/18 Omeprazole 10 mg PO DAILY 09/18/18 clonazePAM [Klonopin -] 1 mg PO DAILY 09/18/18 Methadone [Dolophine -] 140 mg PO DAILY 10/21/18 Nortriptyline HCl [Pamelor -] 25 mg PO HS 10/21/18 - Medication-Assisted Treatment (MAT) Medication-Assisted Treatment (MAT): No - Discharge Instructions Diet, activity, other medical instructions: Diet: Activity: Other medical instructions: - Diagnosis (1) Alcohol dependence Current Visit: No Status: Chronic Qualifiers: Substance use status: uncomplicated Qualified Code(s): F10.20 - Alcohol dependence, uncomplicated (2) Cannabis dependence Current Visit: Yes Status: Acute (3) Cocaine dependence Current Visit: Yes Status: Acute (4) Bipolar II disorder Current Visit: Yes Status: Chronic (5) PTSD (post-traumatic stress disorder) Current Visit: Yes Status: Chronic (6) Hypertension Current Visit: No Status: Chronic Qualifiers: Hypertension type: essential hypertension Qualified Code(s): I10 - Essential (primary) hypertension (7) Hepatitis C Current Visit: No Status: Resolved Qualifiers: Viral hepatitis chronicity: unspecified Hepatic coma status: without hepatic coma Qualified Code(s): B19.20 - Unspecified viral hepatitis C without hepatic coma - AMA Did Patient Leave Against Medical Advice: Yes
== END 2018-10-24 18:53 | disposition left against medical advice (07) | DRG 770 ==
LOC: YASAS 12:39 → Y3E 12:41
PROVIDERS: ADMIT Neuromusculoskeletal Medicine & OMM; ATTEND Neuromusculoskeletal Medicine & OMM
PROC: HZ42ZZZ Group Counseling for Substance Abuse Treatment, Cognitive-Behavioral (ICD-10-PCS; principal; 2018-10-21)
DX: F10.20 Alcohol dependence, uncomplicated (principal); F11.20 Opioid dependence, uncomplicated; F14.20 Cocaine dependence, uncomplicated; F12.20 Cannabis dependence, uncomplicated; F19.282 Other psychoactive substance dependence with psychoactive substance-induced sleep disorder; F31.81 Bipolar II disorder; F43.10 Post-traumatic stress disorder, unspecified; I10 Essential (primary) hypertension; B19.20 Unspecified viral hepatitis C without hepatic coma